=== PATIENT | female | born 1965 | race Caucasian/White ===

== ENCOUNTER 2019-01-19 08:26 | Emergency (ER) | payer OTHER ==
[~2019-01-19] VITALS: Ht 144.8 cm; Wt 60.9 kg
[2019-01-19] MEDS ORDERED: ATORVASTATIN CA20 MG (08:32)
== END 2019-01-19 12:58 | disposition home or self-care (01) ==
LOC: ER 08:26
DX: M79.18 Myalgia, other site (principal); M54.6 Pain in thoracic spine